=== PATIENT | male | born 1990 | race Two or more races ===

== ENCOUNTER 2016-12-19 23:02 | Day surgery (SDC) | payer BC ==
[~2016-12-19 23:02] MED LIST: ZEGERID 40 MG C1 CAP PO
[2016-12-19] MEDS ORDERED: OMEPRAZOLE20 M3 PO (23:20)
[2016-12-19 23:33] LABS: URINE LEUKOCYTE ESTERASE NEGATIVE (NEG); URINE PROTEIN MODERATE (NEG); URINE SPECIFIC GRAVITY 1.015 (1.003-1.030)
[2016-12-19 23:34] LABS: URINE APPEARANCE CLEAR; URINE BILIRUBIN NEGATIVE (NEG); URINE BLOOD NEGATIVE (NEG); URINE COLOR YELLOW; URINE GLUCOSE (UA) SMALL (NEG); URINE KETONE MODERATE (NEG); URINE NITRITE NEGATIVE (NEG)
[2016-12-19 23:41] LABS: BASO % 0.1 % (0-2); EOS % 0.1 % (0-7); HGB-HEMOGLOBIN 16.3 gm/dl (13.5-17.0); IMMATURE GRANULOCYTES ABSOLUTE 0.04 tho/cmm (0-0.03); IMMATURE GRANULOCYTES PERCENT 0.2 % (0-0.3); LYMPH % 8.2 % (20-45); LYMPH ABSOLUTE COUNT 1.4 tho/cmm (0.8-4.5); MCH (MEAN CORPUSCULAR HGB) 28.3 pg (28.0-32.0); MCHC MEAN CORPUSCULAR HGB CONC 34.7 % (32.0-36.0); MCV (MEAN CELL VOLUME) 81.6 fl (82.0-96.0); NEUTROPHIL ABSOLUTE COUNT 14.1 tho/cmm (1.6-8.0); NEUTROPHIL-AUTOMATED 14.1 tho/cmm (1.6-8.0); NEUTROPHILS % 85.4 % (40-80); PLATELET COUNT 254 tho/cmm (150-450); RED BLOOD COUNT 5.76 mil/cmm (4.40-5.70); RED CELL DISTRIBUTION WIDTH 12.6 % (12.4-16.4); WHITE BLOOD COUNT 16.5 tho/cmm (4.0-10.0)
[2016-12-19 23:44] LABS: URINE EPITHELIAL CELLS 0 /[HPF] (0-10); URINE RBC RARE /[HPF] (0-5); URINE WBC 0 /[HPF] (0-5)
[2016-12-19 23:57] LABS: ALBUMIN 4.2 g/dl (3.5-5.0); ALKALINE PHOSPHATASE 67 U/L (33-138); ALT/SGPT 29 U/L (12-78); BILIRUBIN,TOTAL 0.6 mg/dl (0.0-1.5); BLOOD UREA NITROGEN 10 mg/dl (6-24); CARBON DIOXIDE-VENOUS 20 mmol/L (22-32); CHLORIDE 105 mmol/l (96-110); GLUCOSE 119 mg/dL (70-110); LIPASE 76 U/L (73-393); SODIUM 139 mmol/L (135-145); eGFR VALUE FOR BLACK >90 mL/Min
[2016-12-19 23:58] LABS: ANION GAP 17 mmol/L (0-20); AST/SGOT 16 U/L (10-40); POTASSIUM 3.3 mmol/L (3.7-5.1)
[2016-12-20] MEDS ORDERED: NORCO 5-325 TA1 EACH PO (08:15)
== END 2016-12-20 09:35 ==
LOC: EDMED 23:02 → EMR2 12-20 02:27 → PACU 12-20 03:55 → 5WD 12-20 05:00
PROVIDERS: Emergency Medicine
PROC: 0DTJ4ZZ Resection of Appendix, Percutaneous Endoscopic Approach (ICD-10-PCS; principal; 2016-12-19)
DX: K35.80 Unspecified acute appendicitis (principal); K21.9 Gastro-esophageal reflux disease without esophagitis; Z79.899 Other long term (current) drug therapy
CPT/HCPCS: J1335; J2270; J2405; J7030; Q9967